=== PATIENT | male | born 1960 | race Hispanic/Latino ===

== ENCOUNTER 2019-10-17 12:32 | Emergency (ER) | payer MEDICAID ==
[2019-10-17] MEDS ORDERED: dexAMETHasone 20 MG/5 ML VIAL IV ONE (14:40)
[2019-10-17] MEDS ORDERED: HYDROcodone/ACETAMINOPHEN 5-325 MG TAB PO ONE (14:40)
--- NOTE | 2019-10-17 15:33 | XRay Report ---
LEFT FOOT 3 VIEW(S) INDICATION / CLINICAL INFORMATION: left big toe/foot pain/swelling COMPARISON: None available. FINDINGS: BONES / JOINT(S): No acute fracture or subluxation. No significant arthritis. SOFT TISSUES: No significant abnormality. ADDITIONAL FINDINGS: None. IMPRESSION: No acute osseous abnormality. Signer Name: Juan Curiel MD Signed: 10/17/2019 3:29 PM Workstation Name: [id number]
[2019-10-17 15:36] LABS: Basophils % (Auto) 0.4 % (0.0-1.8); Eosinophils # (Auto) 0.1 K/mm3 (0.0-0.4); Hematocrit 39.9 % (35.5-45.6); Lymphocytes % (Auto) 22.4 % (13.4-35.0); Mean Corpuscular HGB Conc 35 % (32-34); Mean Corpuscular Volume 100 fl (84-94); Monocytes # (Auto) 0.9 K/mm3 (0.0-0.8); Monocytes % (Auto) 10.5 % (0.0-7.3); Platelet Count 219 K/mm3 (140-440); Red Blood Count 3.99 M/mm3 (3.65-5.03); Red Cell Distribution Width 13.9 % (13.2-15.2)
--- NOTE | 2019-10-17 16:09 | Emergency Department Report ---
ED Extremity Problem HPI - General Chief complaint: Extremity Injury, Lower Stated complaint: FOOT PAIN Time Seen by Provider: 10/17/19 14:25 Source: patient Mode of arrival: Ambulatory Limitations: No Limitations - History of Present Illness Initial comments: Patient is a 59-year-old male who presents emergency room with complaints of left big toe swelling, pain, redness that began 3 days ago. He denies any fall or injury. He denies ever having this in the past. He denies any numbness or weakness. He denies any abrasions or being bit by anything. He states that the pain is worse with movement. No past medical history. He states he has an a dverse reaction to triglyceride medication. Severity scale (0 -10): 7 - Related Data Previous Rx's Medication Instructions Recorded Last Taken Type Colchicine 0.6 mg PO DAILY 1 Days #3 capsule 10/17/19 Unknown Rx Indomethacin 50 mg PO Q8H 7 Days #21 capsule 10/17/19 Unknown Rx Prednisone [predniSONE 10 mg 10 mg PO .TAPER #1 tab.ds.pk 10/17/19 Unknown Rx (6-Day Pack, 21 Tabs)] Allergies Allergy/AdvReac Type Severity Reaction Status Date / Time Trigliceride medication Allergy Unknown Uncoded 10/17/19 13:16 ED Review of Systems ROS: Stated complaint: FOOT PAIN Other details as noted in HPI Comment: All other systems reviewed and negative ED Past Medical Hx - Past Medical History Previous Medical History?: No - Surgical History Past Surgical History?: No - Social History Smoking Status: Current Every Day Smoker Substance Use Type: Alcohol - Medications Home Medications: Home Medications Medication Instructions Recorded Confirmed Last Taken Type Colchicine 0.6 mg PO DAILY 1 Days #3 capsule 10/17/19 Unknown Rx Indomethacin 50 mg PO Q8H 7 Days #21 capsule 10/17/19 Unknown Rx Prednisone [predniSONE 10 mg 10 mg PO .TAPER #1 tab.ds.pk 10/17/19 Unknown Rx (6-Day Pack, 21 Tabs)] ED Physical Exam - General Limitations: No Limitations General appearance: alert, in no apparent distress - Head Head exam: Present: atraumatic, normocephalic - Eye Eye exam: Present: normal appearance - ENT ENT exam: Present: mucous membranes moist - Extremities Exam Extremities exam: Present: other (there is edema, erythema, increased warmth, and ttp to the left big toe, FROM of the toes, foot, and ankle, no abrasion or ulceration, neurovasculalry intact) - Neurological Exam Neurological exam: Present: alert, oriented X3 - Psychiatric Psychiatric exam: Present: normal affect, normal mood - Skin Skin exam: Present: warm, dry ED Course Vital Signs 10/17/19 10/17/19 10/17/19 13:15 15:51 16:16 Temperature 98.2 F Pulse Rate 102 H 89 Respiratory 18 18 Rate Blood Pressure 134/77 140/86 O2 Sat by Pulse 95 97 Oximetry 10/17/19 10/17/19 16:38 16:42 Temperature Pulse Rate Respiratory 18 18 Rate Blood Pressure O2 Sat by Pulse Oximetry ED Medical Decision Making - Lab Data Result diagrams: 10/17/19 15:00 Lab Results 10/17/19 10/17/19 Range/Units 15:00 15:00 WBC 8.7 (4.5-11.0) K/mm3 RBC 3.99 (3.65-5.03) M/mm3 Hgb 14.0 (11.8-15.2) gm/dl Hct 39.9 (35.5-45.6) % MCV 100 H (84-94) fl MCH 35 H (28-32) pg MCHC 35 H (32-34) % RDW 13.9 (13.2-15.2) % Plt Count 219 (140-440) K/mm3 Lymph % (Auto) 22.4 (13.4-35.0) % [place] % (Auto) 10.5 H (0.0-7.3) % Eos % (Auto) 1.0 (0.0-4.3) % Baso % (Auto) 0.4 (0.0-1.8) % Lymph # 2.0 (1.2-5.4) K/mm3 [place] # 0.9 H (0.0-0.8) K/mm3 Eos # 0.1 (0.0-0.4) K/mm3 Baso # 0.0 (0.0-0.1) K/mm3 Seg Neutrophils % 65.7 (40.0-70.0) % Seg Neutrophils # 5.7 (1.8-7.7) K/mm3 Uric Acid 8.3 H (3.5-7.6) mg/dL - Radiology Data Radiology results: report reviewed LEFT FOOT 3 VIEW(S) INDICATION / CLINICAL INFORMATION: left big toe/foot pain/swelling COMPARISON: None available. FINDINGS: BONES / JOINT(S): No acute fracture or subluxation. No significant arthritis. SOFT TISSUES: No significant abnormality. ADDITIONAL FINDINGS: None. IMPRESSION: No acute osseous abnormality. Signer Name: Kathie Curiel MD Signed: 10/17/2019 3:29 PM Workstation Name: [id number] Transcribed By: SS Dictated By: KATHIE CURIEL Electronically Authenticated By: KATHIE CURIEL Signed Date/Time: 10/17/19 152 DD/ 25 TD/TT: - Medical Decision Making Patient is a 59-year-old male who presents emergency room with complaints of left big toe swelling, pain, redness that began 3 days ago. He denies any fall or injury. He denies ever having this in the past. He denies any numbness or weakness. He denies any abrasions or being bit by anything. He states that the pain is worse with movement. No past medical history. He states he has an adverse reaction to triglyceride medication. initial vitals with mild tachycardia which improved on repeat. on exam: there is edema, erythema, increased warmth, and ttp to the left big toe, FROM of the toes, foot, and ankle, no abrasion or ulceration, neurovasculalry intact. WBC is normal. uric acid is elevated. XR left foot: No acute osseous abnormality. examination appears most consistent with podagra, acute gout flare. does not appear consistent with septic joint. pt given pain medication and dexamethasone IM as he did not drive to the ED. pt given prescription for prednisone, colchicine, indomethacin. advised pt please take medication as prescribed. Please increase your water intake. Please follow the diet for gout. Follow-up with a primary care doctor for reexamination. Return the emergency room for any new or worsening symptoms. - Differential Diagnosis gout, pseudogout, RA, osteoarthritis, DJD, septic joint Critical care attestation.: If time is entered above; I have spent that time in minutes in the direct care of this critically ill patient, excluding procedure time. ED Disposition Clinical Impression: Podagra Acute gout Qualifiers: Gout site: toe Gout etiology: unspecified cause Laterality: left Qualified Code(s): M10.9 - Gout, unspecified Disposition: TO HOME OR SELFCARE Is pt being admited?: No Does the pt Need Aspirin: No Condition: Stable Instructions: Acute Gouty Arthritis (ED) Additional Instructions: Please take medication as prescribed. Please increase your water intake. Please follow the diet for gout. Follow-up with a primary care doctor for reexamination. Return the emergency room for any new or worsening symptoms. Prescriptions: Colchicine 0.6 mg PO DAILY 1 Days #3 capsule Indomethacin 50 mg PO Q8H 7 Days #21 capsule Prednisone [predniSONE 10 mg (6-Day Pack, 21 Tabs)] 10 mg PO .TAPER #1 tab.ds.pk Referrals: KENNETH MAZA MD [Staff Physician] - 2-3 Days [facility] [Provider Group] - 2-3 Days [facility] [Outside] - 2-3 Days Time of Disposition: 16:07 Print Language: JAPANESE
[2019-10-17 16:41] VITALS: BP 140/86
== END 2019-10-17 16:36 | disposition home or self-care (01) ==
LOC: ED 12:32
DX: M10.9 Gout, unspecified (principal); F17.200 Nicotine dependence, unspecified, uncomplicated; Z79.899 Other long term (current) drug therapy; Z88.8 Allergy status to other drugs, medicaments and biological substances
CPT/HCPCS: 36415; 73630; 84550; 85025; 96374; 99284; J1100

== ENCOUNTER 2019-11-05 20:48 | Emergency (ER) | payer MEDICAID ==
--- NOTE | 2019-11-05 23:25 | XRay Report ---
RIGHT ANKLE 3 VIEW INDICATION / CLINICAL INFORMATION: right ankle pain. COMPARISON: None available. FINDINGS: BONES/JOINT(S): No acute fracture or subluxation. There is advanced degenerative change throughout th e ankle joint and hindfoot with joint space loss and marginal osteophyte formation. There is a chroni c fracture of the medial malleolus. SOFT TISSUES: There is diffuse soft tissue swelling throughout the ankle. There are calcifications in the distal Achilles tendon suggestive of chronic Achilles tendinitis. ADDITIONAL FINDINGS: None. Signer Name: Valentin Pugh MD Signed: 11/05/2019 11:20 PM Workstation Name: [id number]
--- NOTE | 2019-11-05 23:25 | XRay Report ---
LEFT FOOT 3 VIEW INDICATION / CLINICAL INFORMATION: Left toe pain. COMPARISON: 10/17/2019 FINDINGS: BONES/JOINT(S): No acute fracture or subluxation. No significant degenerative changes. SOFT TISSUES: No significant abnormality. ADDITIONAL FINDINGS: None. Signer Name: Valentin Pugh MD Signed: 11/05/2019 11:21 PM Workstation Name: [id number]
--- NOTE | 2019-11-06 01:17 | Emergency Department Report ---
<SAMI AUGUSTIN - Last Filed: 11/06/19 06:31> ED General Adult HPI - General Chief complaint: Extremity Injury, Lower Stated complaint: GOUT Time Seen by Provider: 11/06/19 01:14 Source: patient Mode of arrival: Stretcher Limitations: No Limitations - History of Present Illness Initial comments: 59-year-old male patient presents with complaints of right ankle pain and swelling x3 days. He also reports left great toe pain and swelling x1 day. Patient was seen here 10/17/2019 for pain and swelling of the right foot and was diagnosed with and treated for gout. The pain and swelling at that time was at the top portion of his foot. He reports 3 days ago he twisted his right ankle prior to the start of the pain. He denies any penetrating injuries. He does report a left knee abrasion from crawling on the floor for the past day due to his pain. Patient states his last tetanus vaccination is within the last 5 years. He denies any other prior medical history. Patient noted to have low- grade fever of 100.0. He does report a mild cough for the past 4 days, but denies any hemoptysis, shortness of breath, chest pain, loss of smell or taste, abdominal pain, nausea/vomiting/diarrhea, or recent known sick contacts. He reports he is a smoker and that the cough is similar to his smoker's cough but slightly worse. - Related Data Previous Rx's Medication Instructions Recorded Last Taken Type Colchicine 0.6 mg PO DAILY 1 Days #3 capsule 10/17/19 Unknown Rx Indomethacin 50 mg PO Q8H 7 Days #21 capsule 10/17/19 Unknown Rx Prednisone [predniSONE 10 mg 10 mg PO .TAPER #1 tab.ds.pk 10/17/19 Unknown Rx (6-Day Pack, 21 Tabs)] Allergies Allergy/AdvReac Type Severity Reaction Status Date / Time Barbiturates Allergy Unknown Verified 11/05/19 22:31 Trigliceride medication Allergy Unknown Uncoded 10/17/19 13:16 ED Review of Systems Constitutional: denies: chills, diaphoresis, weakness ENT: denies: throat pain Respiratory: cough. denies: shortness of breath Cardiovascular: denies: chest pain Endocrine: denies: excessive sweating Gastrointestinal: denies: abdominal pain, nausea, vomiting, diarrhea Genitourinary: denies: urgency, dysuria Musculoskeletal: joint swelling, arthralgia. denies: back pain Skin: denies: rash Neurological: denies: headache, numbness, paresthesias Hematological/Lymphatic: denies: easy bleeding, swollen glands ED Past Medical Hx - Past Medical History Previous Medical History?: Yes Hx Psychiatric Treatment: Yes (Schizophrenia) Additional medical history: Gout - Surgical History Past Surgical History?: Yes Additional Surgical History: Tonsillectomy - Social History Smoking Status: Current Every Day Smoker Substance Use Type: None - Medications Home Medications: Home Medications Medication Instructions Recorded Confirmed Last Taken Type Colchicine 0.6 mg PO DAILY 1 Days #3 capsule 10/17/19 Unknown Rx Indomethacin 50 mg PO Q8H 7 Days #21 capsule 10/17/19 Unknown Rx Prednisone [predniSONE 10 mg 10 mg PO .TAPER #1 tab.ds.pk 10/17/19 Unknown Rx (6-Day Pack, 21 Tabs)] ED Physical Exam - General Limitations: No Limitations General appearance: alert, in no apparent distress - Head Head exam: Present: atraumatic, normocephalic - Eye Eye exam: Present: normal appearance. Absent: scleral icterus - ENT ENT exam: Present: mucous membranes moist - Neck Neck exam: Present: normal inspection, full ROM. Absent: lymphadenopathy - Respiratory Respiratory exam: Present: normal lung sounds bilaterally. Absent: respiratory distress, wheezes, rales, rhonchi - Cardiovascular Cardiovascular Exam: Present: normal rhythm, tachycardia. Absent: systolic murmur, diastolic murmur, rubs, gallop - GI/Abdominal GI/Abdominal exam: Present: soft. Absent: distended, tenderness - Extremities Exam Extremities exam: Present: other (Significant swelling noted to right ankle with tenderness to palpation and overlying erythema; range of motion is limited by swelling and pain; patient has normal sensation of the foot and toes; normal range of motion of the toes is noted; pedal pulses normal; swelling with mild overlying mild erythema noted to left first MCP and first PIP joint with tenderness to palpation) - Back Exam Back exam: Present: full ROM - Neurological Exam Neurological exam: Present: alert, oriented X3 - Psychiatric Psychiatric exam: Present: normal affect, normal mood - Skin Skin exam: Present: warm, dry, abrasion (Left knee. No surrounding erythema, induration, or swelling noted). Absent: rash ED Medical Decision Making - Lab Data Result diagrams: 11/06/19 01:52 11/06/19 01:52 - Radiology Data Radiology results: report reviewed LEFT FOOT 3 VIEW INDICATION / CLINICAL INFORMATION: Left toe pain. COMPARISON: 10/17/2019 FINDINGS: BONES/JOINT(S): No acute fracture or subluxation. No significant degenerative changes. SOFT TISSUES: No significant abnormality. ADDITIONAL FINDINGS: None. RIGHT ANKLE 3 VIEW INDICATION / CLINICAL INFORMATION: right ankle pain. COMPARISON: None available. FINDINGS: BONES/JOINT(S): No acute fracture or subluxation. There is advanced degenerative change throughout the ankle joint and hindfoot with joint space loss and marginal osteophyte formation. There is a chronic fracture of the medial malleolus. SOFT TISSUES: There is diffuse soft tissue swelling throughout the ankle. There are calcifications in the distal Achilles tendon suggestive of chronic Achilles tendinitis. ADDITIONAL FINDINGS: None. CHEST 2 VIEWS INDICATION / CLINICAL INFORMATION: cough, fever. COMPARISON: None available. FINDINGS: SUPPORT DEVICES: None. HEART / MEDIASTINUM: No significant abnormality. LUNGS / PLEURA: No significant pulmonary or pleural abnormality. No pneumothorax. ADDITIONAL FINDINGS: No significant additional findings. IMPRESSION: 1. No acute findings. - Medical Decision Making 59-year-old male patient presents with complaints of right ankle pain and swelling x3 days. He also reports left great toe pain and swelling x1 day. Patient was seen here 10/17/2019 for pain and swelling of the right foot and was diagnosed with and treated for gout. The pain and swelling at that time was at the top portion of his foot. He reports 3 days ago he twisted his right ankle prior to the start of the pain. He denies any penetrating injuries. He does report a left knee abrasion from crawling on the floor for the past day due to his pain. Patient states his last tetanus vaccination is within the last 5 years. He denies any other prior medical history. Patient noted to have low- grade fever of 100.0. He does report a mild cough for the past 4 days, but denies any hemoptysis, shortness of breath, chest pain, loss of smell or taste, abdominal pain, nausea/vomiting/diarrhea, or recent known sick contacts. He reports he is a smoker and that the cough is similar to his smoker's cough but slightly worse. ED Disposition Clinical Impression: Gouty arthritis of left great toe Septic arthritis of right ankle Qualifiers: Septic arthritis organism: due to unspecified organism Qualified Code(s): M00.9 - Pyogenic arthritis, unspecified Disposition: DC/TX-70 ANOTHER TYPE [facility] Condition: Stable Referrals: PRIMARY CARE,MD [Primary Care Provider] - 3-5 Days <ARIK DAVENPORT - Last Filed: 11/06/19 08:12> - Joint Aspiration/Injection Consent Obtained: written consent Time Out Performed: Yes Indications: R/O septic arthritis Side of Body: right Joint Aspirated: ankle Ultrasound Guidance: No Skin Prep: Povidone-Iodine1% Local Anesthesia Used: Lidocaine 1% Amount of Anesthesia Used (mls): 3 Needle Size Used: Other (19G) Syringe Size Used: 5cc Total Fluid Obtained (mls): 0 Patient Tolerated Procedure: well Complications: other (Unable to obtain synovial fluid) ED Medical Decision Making - Lab Data Result diagrams: 11/06/19 01:52 11/06/19 01:52 - Medical Decision Making 59-year-old male presents to ED with possible septic joint. Patient presented with fever, tachycardia, and right ankle pain and swelling. I attempted to perform a diagnostic arthrocentesis to assess synovial fluid, however I was unable to obtain any fluid with arthrocentesis. We do not currently have an orthopedic physician on-call. Dr. Jackson who is a foot and ankle specialist, is on the call schedule. I spoke with him however he is currently out of town, and will not return until 1 week from today. Therefore, decision was made to transfer the patient so that he may be seen by an community living specialist for possible septic joint. Patient has been given vancomycin and Rocephin. He will be transferred to [facility]. <KIMBERLEE HANEY - Last Filed: 11/06/19 09:16> ED Review of Systems ROS: Stated complaint: GOUT Other details as noted in HPI ED Course Vital Signs 11/05/19 11/06/19 11/06/19 22:14 01:20 04:00 Temperature 100.0 F H 100.3 F H 99.0 F Pulse Rate 115 H 103 H 86 Respiratory 18 17 17 Rate Blood Pressure 152/92 Blood Pressure 103/68 [Right] O2 Sat by Pulse 96 97 97 Oximetry 11/06/19 08:16 Temperature 99.0 F Pulse Rate 86 Respiratory 18 Rate Blood Pressure Blood Pressure 140/82 [Right] O2 Sat by Pulse 98 Oximetry - Reevaluation(s) Reevaluation #1: 11/06/19 07:42 Patient is resting comfortably with no acute signs of distress. Awaiting orthopedic follow-up. - Consultations Consultation #1: 11/06/19 07:42 Dr. Davenport consulted with Dr. Jackson (ankle foot due to no orthopedic social service liaison) which was told that he is out of town. Patient will be consulted with another facility for possible septic joint transfer. Consultation #2: 11/06/19 07:59 Dr. Lombardo ([facility] [place] orthopedic) which agrees for transfer to ED. Consultation #3: 11/06/19 08:[address] Ortega (ED [facility] [place]) about patient history, physical exam and accepts patient to services to ED transfer. ED Medical Decision Making - Lab Data Result diagrams: 11/06/19 01:52 11/06/19 01:52 Lab Results 11/06/19 11/06/19 11/06/19 Range/Units 01:52 01:52 01:52 WBC 8.4 (4.5-11.0) K/mm3 RBC 4.06 (3.65-5.03) M/mm3 Hgb 14.2 (11.8-15.2) gm/dl Hct 40.4 (35.5-45.6) % MCV 99 H (84-94) fl MCH 35 H (28-32) pg MCHC 35 H (32-34) % RDW 13.4 (13.2-15.2) % Plt Count 206 (140-440) K/mm3 Lymph % (Auto) 20.0 (13.4-35.0) % [place] % (Auto) 12.9 H (0.0-7.3) % Eos % (Auto) 0.5 (0.0-4.3) % Baso % (Auto) 0.4 (0.0-1.8) % Lymph # (Auto) 1.7 (1.2-5.4) K/mm3 [place] # (Auto) 1.1 H (0.0-0.8) K/mm3 Eos # (Auto) 0.0 (0.0-0.4) K/mm3 Baso # (Auto) 0.0 (0.0-0.1) K/mm3 Seg Neutrophils % 66.2 (40.0-70.0) % Seg Neutrophils # 5.6 (1.8-7.7) K/mm3 ESR 46 (0-20) mm/Hr Sodium 134 L (137-145) mmol/L Potassium 4.0 (3.6-5.0) mmol/L Chloride 96.3 L (98-107) mmol/L Carbon Dioxide 24 (22-30) mmol/L Anion Gap 18 mmol/L BUN 12 (9-20) mg/dL Creatinine 0.8 (0.8-1.3) mg/dL Estimated GFR > 60 ml/min BUN/Creatinine Ratio 15 % Glucose 168 H (75-100) mg/dL Lactic Acid 1.50 (0.7-2.0) mmol/L Uric Acid 5.3 (3.5-7.6) mg/dL Calcium 9.1 (8.4-10.2) mg/dL Total Bilirubin 0.80 (0.1-1.2) mg/dL AST 17 (5-40) units/L ALT 15 (7-56) units/L Alkaline Phosphatase 80 (35-129) units/L Total Creatine Kinase (55-170) units/L C-Reactive Protein (0.00-1.30) mg/dL Total Protein 7.6 (6.3-8.2) g/dL Albumin 3.9 (3.9-5) g/dL Albumin/Globulin Ratio 1.1 % Urine Color (Yellow) Urine Turbidity (Clear) Urine pH (5.0-7.0) Ur Specific [place] (1.003-1.030) Urine Protein (Negative) mg/dL Urine Glucose (UA) (Negative) mg/dL Urine Ketones (Negative) mg/dL Urine Blood (Negative) Urine Nitrite (Negative) Urine Bilirubin (Negative) Urine Urobilinogen (<2.0) mg/dL Ur Leukocyte Esterase (Negative) Urine WBC (Auto) (0.0-6.0) /HPF Urine RBC (Auto) (0.0-6.0) /HPF Urine Mucus /HPF 11/06/19 11/06/19 11/06/19 Range/Units 01:52 03:49 05:35 WBC (4.5-11.0) K/mm3 RBC (3.65-5.03) M/mm3 Hgb (11.8-15.2) gm/dl Hct (35.5-45.6) % MCV (84-94) fl MCH (28-32) pg MCHC (32-34) % RDW (13.2-15.2) % Plt Count (140-440) K/mm3 Lymph % (Auto) (13.4-35.0) % [place] % (Auto) (0.0-7.3) % Eos % (Auto) (0.0-4.3) % Baso % (Auto) (0.0-1.8) % Lymph # (Auto) (1.2-5.4) K/mm3 [place] # (Auto) (0.0-0.8) K/mm3 Eos # (Auto) (0.0-0.4) K/mm3 Baso # (Auto) (0.0-0.1) K/mm3 Seg Neutrophils % (40.0-70.0) % Seg Neutrophils # (1.8-7.7) K/mm3 ESR (0-20) mm/Hr Sodium (137-145) mmol/L Potassium (3.6-5.0) mmol/L Chloride (98-107) mmol/L Carbon Dioxide (22-30) mmol/L Anion Gap mmol/L BUN (9-20) mg/dL Creatinine (0.8-1.3) mg/dL Estimated GFR ml/min BUN/Creatinine Ratio % Glucose (75-100) mg/dL Lactic Acid (0.7-2.0) mmol/L Uric Acid (3.5-7.6) mg/dL Calcium (8.4-10.2) mg/dL Total Bilirubin (0.1-1.2) mg/dL AST (5-40) units/L ALT (7-56) units/L Alkaline Phosphatase (35-129) units/L Total Creatine Kinase 57 (55-170) units/L C-Reactive Protein 20.30 H (0.00-1.30) mg/dL Total Protein (6.3-8.2) g/dL Albumin (3.9-5) g/dL Albumin/Globulin Ratio % Urine Color [place] (Yellow) Urine Turbidity Clear (Clear) Urine pH 5.0 (5.0-7.0) Ur Specific [place] 1.030 (1.003-1.030) Urine Protein 100 mg/dl (Negative) mg/dL Urine Glucose (UA) 50 (Negative) mg/dL Urine Ketones Neg (Negative) mg/dL Urine Blood Neg (Negative) Urine Nitrite Neg (Negative) Urine Bilirubin Neg (Negative) Urine Urobilinogen 4.0 (<2.0) mg/dL Ur Leukocyte Esterase Neg (Negative) Urine WBC (Auto) 5.0 (0.0-6.0) /HPF Urine RBC (Auto) 2.0 (0.0-6.0) /HPF Urine Mucus 3+ /HPF - Radiology Data Referring Physician: ED DAMARIS Patient Name: ZAINAB FAJARDO Date of : 1960 Sex: Male Report Date: 2019-11-05 Report Status: [place] [address] XRay Report Signed Patient: ZAINAB FAJARDO MR#: [id number] 15 : 1960 Acct:[id number] Age/Sex: 59 / M ADM Date: 11/05/19 Loc: ED Attending Dr: Ordering Physician: COOPER OCAMPO MD Date of Service: 11/05/19 Procedure(s): XR ankle 3+V RT Accession Number(s): [id number] cc: COOPER OCAMPO MD Fluoro Time In Minutes: RIGHT ANKLE 3 VIEW INDICATION / CLINICAL INFORMATION: right ankle pain. COMPARISON: None available. FINDINGS: BONES/JOINT(S): No acute fracture or subluxation. There is advanced degenerative change throughout the ankle joint and hindfoot with joint space loss and marginal osteophyte formation. There is a chronic fracture of the medial malleolus. SOFT TISSUES: There is diffuse soft tissue swelling throughout the ankle. There are calcifications in the distal Achilles tendon suggestive of chronic Achilles tendinitis. ADDITIONAL FINDINGS: None. Signer Name: Valentin Pugh MD Signed: 11/05/2019 11:20 PM Workstation Name: [id number] Transcribed By: RENETTA Dictated By: Valentin Pugh MD Electronically Authenticated By: Valentin Pugh MD Signed Date/Time: 11/05/192319 DD/ 18 TD/TT: Referring Physician: SAMI AUGUSTIN Patient Name: ZAINAB FAJARDO Date of : 1960 Sex: Male Report Date: 2019-11-06 Report Status: Finalized [address] [address] XRay Report Signed Patient: ZAINAB FAJARDO MR#: [id number] 15 : 1960 Acct:[id number] Age/Sex: 59 / M ADM Date: 11/05/19 Loc: ED Attending Dr: Ordering Physician: SAMI AUGUSTIN Date of Service: 11/06/19 Procedure(s): XR chest routine 2V Accession Number(s): [id number] cc: SAMI AUGUSTIN Fluoro Time In Minutes: CHEST 2 VIEWS INDICATION / CLINICAL INFORMATION: cough, fever. COMPARISON: None available. FINDINGS: SUPPORT DEVICES: None. HEART / MEDIASTINUM: No significant abnormality. LUNGS / PLEURA: No significant pulmona ry or pleural abnormality. No pneumothorax. ADDITIONAL FINDINGS: No significant additional findings. IMPRESSION: 1. No acute findings. Signer Name: Valentin Pugh MD Signed: 11/06/2019 3:08 AM Workstation Name: [email or web address][id number] Transcribed By: RENETTA Dictated By: Valentin Pugh MD Electronically Authenticated By: Valentin Pugh MD Signed Date/Time: 11/06/19307 DD/ 7 TD/TT: Referring Physician: COOPER OCAMPO Patient Name: ZAINAB FAJARDO Date of : 1960 Sex: Male Report Date: 2019-11-05 Report Status: Finalized [address] [address] XRay Report Signed Patient: ZAINAB FAJARDO MR#: [id number] 15 : 1960 Acct:[id number] Age/Sex: 59 / M ADM Date: 11/05/19 Loc: ED Attending Dr: Ordering Physician: COOPER OCAMPO MD Date of Service: 11/05/19 Procedure(s): XR foot 3+V LT Accession Number(s): [id number] cc: COOPER OCAMPO MD Fluoro Time In Minutes: LEFT FOOT 3 VIEW INDICATION / CLINICAL INFORMATION: Left toe pain. COMPARISON: 10/17/2019 FINDINGS: BONES/JOINT(S): No acute fracture or subluxation. No significant degenerative changes. SOFT TISSUES: No significant abnormality. ADDITIONAL FINDINGS: None. Signer Name: Valentin Pugh MD Signed: 11/05/2019 11:21 PM Workstation Name: [id number] Transcribed By: RENETTA Dictated By: Valentin Pugh MD Electronically Authenticated By: Valentin Pugh MD Signed Date/Time: 11/05/192320 DD/ 19 TD/TT: - Medical Decision Making This is a 59-year-old male that was examined and seen by a previous PA Sami Augustin and signed out to me for possible septic joint. Patient was then reevaluated by me and agreed to the ED plan of care. Patient is transferred to [facility] [place] for further evaluation and treatment. I did start patient on vancomycin and Rocephin IV. Patient is currently stable. Vital signs are stable. At time of transfer, the patient does not seem toxic or ill in appearance. No acute signs of distress noted. Patient agrees to treatment plan of care. No further questions noted by the patient. Critical care attestation.: If time is entered above; I have spent that time in minutes in the direct care of this critically ill patient, excluding procedure time. ED Disposition Is pt being admited?: No
[2019-11-06] MEDS ORDERED: KETOROLAC 30 MG/1 ML INJ IV ONE ×2 (01:22→01:56)
[2019-11-06] MEDS ORDERED: ONDANSETRON 4 MG/2 ML INJ IV ONE (01:23)
[2019-11-06] MEDS ORDERED: MORPHINE 4 MG/1 ML INJ IV ONE (01:23)
[2019-11-06 02:39] LABS: Basophils % (Auto) 0.4 % (0.0-1.8); Eosinophils % (Auto) 0.5 % (0.0-4.3); Hematocrit 40.4 % (35.5-45.6); Hemoglobin 14.2 gm/dl (11.8-15.2); Lymphocytes # (Auto) 1.7 K/mm3 (1.2-5.4); Mean Corpuscular HGB Conc 35 % (32-34); Mean Corpuscular Volume 99 fl (84-94); Monocytes # (Auto) 1.1 K/mm3 (0.0-0.8); Monocytes % (Auto) 12.9 % (0.0-7.3); Platelet Count 206 K/mm3 (140-440); Red Blood Count 4.06 M/mm3 (3.65-5.03); Red Cell Distribution Width 13.4 % (13.2-15.2)
[2019-11-06 02:55] LABS: Alanine Aminotransferase 15 units/L (7-56); Albumin 3.9 g/dL (3.9-5); BUN/Creatinine Ratio 15; Blood Urea Nitrogen 12 mg/dL (9-20); Calcium 9.1 mg/dL (8.4-10.2); Hemolysis Index 18
[2019-11-06 03:03] LABS: Erythrocyte Sedimentation Rate 46 mm/Hr (0-20)
--- NOTE | 2019-11-06 03:13 | XRay Report ---
CHEST 2 VIEWS INDICATION / CLINICAL INFORMATION: cough, fever. COMPARISON: None available. FINDINGS: SUPPORT DEVICES: None. HEART / MEDIASTINUM: No significant abnormality. LUNGS / PLEURA: No significant pulmonary or pleural abnormality. No pneumothorax. ADDITIONAL FINDINGS: No significant additional findings. IMPRESSION: 1. No acute findings. Signer Name: Valentin Pugh MD Signed: 11/06/2019 3:08 AM Workstation Name: [email or web address]
[2019-11-06 03:53] LABS: Uric Acid 5.3 mg/dL (3.5-7.6)
[2019-11-06 04:17] LABS: Bilirubin,Urine NEG (Negative); Blood,Urine NEG (Negative); Color,Urine Amber (Yellow); Mucus,Urine 3+ /HPF
[2019-11-06] MEDS ORDERED: LIDOCAINE (1%) 10 MG/1 ML VIAL 20 ML MDV INFILTRATI ONE (06:51)
[2019-11-06] MEDS ORDERED: VANCOMYCIN/NS 1 GM/250 ML 1 GM/250 ML BAG IV ONE (07:45)
[2019-11-06] MEDS ORDERED: cefTRIAXone/NS 2 GM/100 ML 2 GM/100 ML BAG IV ONE (07:49)
[2019-11-06 08:17] VITALS: BP 140/82
[2019-11-06] MEDS ORDERED: VANCOMYCIN 2,000 MG in SODIUM CHLORIDE 0.9% 500 ML 500 ML IV ONE (08:30)
== END 2019-11-06 09:49 | disposition other institution (70) ==
LOC: ED 20:48
DX: M1A.0720 Idiopathic chronic gout, left ankle and foot, without tophus (tophi) (principal); T84.59XA Infection and inflammatory reaction due to other internal joint prosthesis, initial encounter; M00.9 Pyogenic arthritis, unspecified; F20.9 Schizophrenia, unspecified; F17.200 Nicotine dependence, unspecified, uncomplicated; Z79.899 Other long term (current) drug therapy; Z88.8 Allergy status to other drugs, medicaments and biological substances
CPT/HCPCS: 20605; 36415; 71046; 73610; 73630; 80053; 81001; 82140; 82550; 84550; 85025; 85652; 86140; 87040; 96365; 96367; 96375; 99285; J0696; J1885; J2270; J2405; J3370; J7040